=== PATIENT | female | born 1985 | race African-American/Black ===

== ENCOUNTER 2023-12-24 20:32 | Emergency (ER) | payer OTHER ==
[~2023-12-24] VITALS: Ht 149.9 cm; Wt 81.6 kg
[2023-12-24 20:39] VITALS: BP_SYST 164; PULSE 83; RESP 16; TEMP 97.9; O2SAT 96
[2023-12-25] MEDS ORDERED: SOM350 PO (00:36)
== END 2023-12-25 00:45 | disposition home or self-care (01) ==
LOC: SED 20:32
DX: S29.011A Strain of muscle and tendon of front wall of thorax, initial encounter (principal); M62.838 Other muscle spasm; X50.0XXA Overexertion from strenuous movement or load, initial encounter; Y93.89 Activity, other specified; Y92.89 Other specified places as the place of occurrence of the external cause; Y99.8 Other external cause status
CPT/HCPCS: 71045; 73030; 93005; 99284